=== PATIENT | male | born 1975 | race African-American/Black ===

== ENCOUNTER 2019-11-06 04:15 | Emergency (ER) | payer BC, MEDICAID ==
[~2019-11-06] VITALS: Ht 180.3 cm; Wt 88.5 kg
[~2019-11-06 04:15] MED LIST: QUET25TA PO
[2019-11-06 06:17] LABS: CHLORIDE 109 mEq/L (98-107)
[2019-11-06 06:18] LABS: EOSINOPHILS % 2.6 % (0.0-5.0); HEMATOCRIT. 37.1 % (42.0-52.0); HEMOGLOBIN. 12.7 g/dL (14.0-18.0); LYMPHOCYTES % 44.5 % (20.0-50.0); MEAN CORPUSCULAR HEMOGLOBIN 35.3 pg (28.0-32.0); MEAN CORPUSCULAR VOLUME 102.8 fL (80.0-94.0); MEAN PLATELET VOLUME 7.4 fl (7.4-10.4); MONOCYTES % 7.3 % (2.0-8.0); NEUTROPHILS % 44.6 % (40.0-76.0); PLATELET 259 x1000/uL (130-400); RED BLOOD CELL COUNT 3.61 mill/uL (4.7-6.1)
[2019-11-06 06:30] LABS: CARBAMAZEPINE < 0.5 ug/mL (4-12); PHENOBARBITAL < 2.1 ug/mL (15.0-40.0); VALPROIC ACID < 3.0 ug/mL (50-100)
[2019-11-06] MEDS ORDERED: SODIUM CHLORIDE 0.9% 1,000 ML IV ONE (06:40)
[2019-11-06 10:59] LABS: *AMPHETAMINES SCREEN URINE NEGATIVE (NEGATIVE); *BARBITURATES SCREEN URINE NEGATIVE (NEGATIVE); *BENZODIAZEPINES SCREEN URINE NEGATIVE (NEGATIVE); *COCAINE SCREEN URINE NEGATIVE (NEGATIVE)
[2019-11-06 11:00] LABS: CANNABINOID URINE SCREEN PRESUMTIVE POSITIVE (NEGATIVE); METHADONE URINE SCREEN NEGATIVE (NEGATIVE); OPIATES URINE SCREEN NEGATIVE (NEGATIVE); PHENCYCLIDINE URINE SCREEN PRESUMTIVE POSITIVE (NEGATIVE)
[2019-11-07 12:30] VITALS: BP 145/79
== END 2019-11-07 13:45 | disposition home or self-care (01) ==
LOC: ER 04:15
DX: R56.9 Unspecified convulsions (principal)
CPT/HCPCS: 36415; 80053; 80156; 80165; 80184; 80185; 80305; 80320; 85025; 93005; 96360; 96361; 99285; G0480

== ENCOUNTER 2022-11-07 22:10 | Emergency (ER) | payer OTHER ==
[~2022-11-07] VITALS: Ht 182.9 cm; Wt 86.0 kg
[2022-11-07 22:24] VITALS: BP 141/92; PULSE 88; RESP 19; O2SAT 98
[2022-11-08] MEDS ORDERED: ACETAMINOPHEN 325MG TABLET PO ONE (01:15)
[2022-11-08 02:23] VITALS: TEMP 98.1
[2022-11-08] MEDS ORDERED: IBUP-2029 MT (04:00)
== END 2022-11-08 04:30 | disposition home or self-care (01) ==
LOC: ER 22:10
DX: S09.90XA Unspecified injury of head, initial encounter (principal); W18.39XA Other fall on same level, initial encounter; Y93.89 Activity, other specified; Y92.89 Other specified places as the place of occurrence of the external cause; Y99.8 Other external cause status
CPT/HCPCS: 72131; 73610; 99284

== ENCOUNTER 2023-06-03 02:18 | Emergency (ER) | payer OTHER ==
[~2023-06-03] VITALS: Ht 175.3 cm; Wt 186.0 kg
[~2023-06-03 02:18] MED LIST changes: +IBUP-2029 MT
[2023-06-03 02:48] VITALS: BP 158/107; PULSE 86; RESP 18; TEMP 98.3; O2SAT 98
[2023-06-03 03:48] LABS: CLARITY URINE CLEAR (CLEAR); COLOR URINE YELLOW (YELLOW); GLUCOSE URINE NEGATIVE (NEGATIVE); KETONES URINE NEGATIVE (NEGATIVE); LEUKOCYTE ESTERASE URINE 1+ (NEGATIVE); NITRITE URINE NEGATIVE (NEGATIVE); OCCULT BLOOD URINE NEGATIVE (NEGATIVE); PH URINE 5.5 (4.5-8.0); PROTEIN URINE NEGATIVE (NEGATIVE); SPECIFIC GRAVITY URINE 1.019 (1.005-1.030)
[2023-06-03 04:55] LABS: RBC URINE 0-2 /hpf (0-2)
[2023-06-03 04:56] LABS: BACTERIA URINE NONE SEEN; SQUAMOUS EPITHELIAL CELL URINE 1+ /lpf (RARE/1+)
[2023-06-03] MEDS ORDERED: CEFTRIAXONE SODIUM 1 G/VIAL IM ONE (05:30)
[2023-06-03] MEDS ORDERED: DOXYCYCLINE HYCLATE 100MG CAPSULE PO ONE (05:30)
[2023-06-03] MEDS ORDERED: TOPUD PO (05:31)
[2023-06-03] MEDS ORDERED: BUPR-315 PO (05:31)
[2023-06-03] MEDS ORDERED: DOXY100C5 PO (05:31)
[2023-06-03] MEDS ORDERED: QUET100T PO (05:31)
== END 2023-06-03 05:57 | disposition home or self-care (01) ==
LOC: ER 02:18
DX: J45.901 Unspecified asthma with (acute) exacerbation (principal)
CPT/HCPCS: 99283; 81003; 87086; 96372; J0696

== ENCOUNTER 2023-07-01 01:12 | Emergency (ER) | payer OTHER ==
[~2023-07-01] VITALS: Ht 177.8 cm; Wt 75.0 kg
[~2023-07-01 01:12] MED LIST changes: +BUPR-315 PO; +DOXY100C5 PO; +QUET100T PO; +TOPUD PO
[2023-07-01 01:20] VITALS: BP 141/90; PULSE 110; RESP 14; TEMP 98; O2SAT 98
== END 2023-07-01 02:26 | disposition left against medical advice (07) ==
LOC: ER 01:12
DX: M25.512 Pain in left shoulder (principal); Z53.21 Procedure and treatment not carried out due to patient leaving prior to being seen by health care provider
CPT/HCPCS: 73030; 99281

== ENCOUNTER 2023-07-03 09:00 | Emergency (ER) | payer OTHER ==
[~2023-07-03] VITALS: Ht 182.9 cm; Wt 87.0 kg
[2023-07-03 09:02] VITALS: BP 130/80; PULSE 104; RESP 16; TEMP 98.4; O2SAT 97
== END 2023-07-03 13:13 | disposition left against medical advice (07) ==
LOC: ER 09:00
DX: M25.511 Pain in right shoulder (principal); Z53.21 Procedure and treatment not carried out due to patient leaving prior to being seen by health care provider
CPT/HCPCS: 99281

== ENCOUNTER 2023-08-02 03:55 | Emergency (ER) | payer OTHER ==
[~2023-08-02] VITALS: Ht 177.8 cm; Wt 82.0 kg
[2023-08-02 04:27] VITALS: BP 151/95; PULSE 96; RESP 18; TEMP 97.8; O2SAT 99
== END 2023-08-02 05:48 | disposition left against medical advice (07) ==
LOC: ER 03:55
DX: R05.9 Cough, unspecified (principal); I10 Essential (primary) hypertension
CPT/HCPCS: 93005; 99283